=== PATIENT | female | born 1955 | race Caucasian/White ===

== ENCOUNTER 2019-09-24 20:21 | Emergency (ER) | payer OTHER ==
[~2019-09-24] VITALS: Ht 167.6 cm; Wt 135.6 kg
[2019-09-24] MEDS ORDERED: METFORMIN HCL500 M3 PO (20:38)
[2019-09-24] MEDS ORDERED: LEVO-T25 MCG PO (20:39)
[2019-09-24] MEDS ORDERED: LIPITOR 20 MG T20 M1 PO (20:39)
[2019-09-24] MEDS ORDERED: FUROSEMIDE 20 M20 MG PO (20:39)
[2019-09-24] MEDS ORDERED: OMEPRAZOLE 20 M20 M1 PO (20:40)
[2019-09-24] MEDS ORDERED: NORCO 5-325 TA1 EAC1 PO (22:16)
[2019-09-24 22:35] VITALS: BP 159/66
== END 2019-09-24 22:40 | disposition home or self-care (01) ==
LOC: ER 20:21
DX: S80.02XA Contusion of left knee, initial encounter (principal); S50.311A Abrasion of right elbow, initial encounter; E11.9 Type 2 diabetes mellitus without complications; E78.00 Pure hypercholesterolemia, unspecified; M25.531 Pain in right wrist; E03.9 Hypothyroidism, unspecified; Z79.84 Long term (current) use of oral hypoglycemic drugs; Z79.899 Other long term (current) drug therapy; W19.XXXA Unspecified fall, initial encounter; Y93.89 Activity, other specified; Y92.89 Other specified places as the place of occurrence of the external cause; Y99.8 Other external cause status